=== PATIENT | female | born 1980 | race Caucasian/White ===

== ENCOUNTER 2019-09-16 12:41 | Emergency (ER) | payer MEDICAID, OTHER ==
[~2019-09-16] VITALS: Ht 157.5 cm; Wt 90.7 kg
--- NOTE | 2019-09-16 13:50 | ED Head Injury ---
General Chief Complaint: Head/Cervical Problems Stated Complaint: HEADACHE; CHEST PAIN Nursing Triage Note: Patient reports she has had a headache and sinus pressure for 3 weeks, states she has seen her PCP 3x and an urgent care provider once, has taken 2 different antiobiotics without relief. She states she took her antibiotic and ate enchiladas today for lunch, then began having what she describes as heartburn. Source: patient History of Present Illness Date Seen by Provider: Sep 16, 2019 Time Seen by Provider: 13:00 Initial Comments Patient is a 39-year-old female with history of headaches, depression and anxiety who presents with sinus pressure, headache and dizziness for the past 3 weeks. Patient states she was seen at urgent care twice for headache and completed course of Abx which did not help. Denies neck pain, stiffness, rash. Denies extremity weakness, loss of sensation, loss of taste or smell. Reports heartburn after eating enchilada for lunch. He also reports increased replace anxiety and stress. She states she has been off Zoloft for the past 2 months. Occurred: just prior to arrival Severity: moderate Location: frontal Method of Injury: other Loss of Consciousness: no loss of consciousness Associated Systoms: Chest Pain, Other Allergies and Home Medications Allergies Coded Allergies: butorphanol (Verified Allergy, Unknown, 09/16/19) Patient Home Medication List Home Medication List Reviewed: Yes Review of Systems Review of Systems Constitutional: see HPI Eyes: See HPI Ears, Nose, Mouth, Throat: see HPI Respiratory: see HPI Cardiovascular: see HPI Gastrointestinal: see HPI Genitourinary: see HPI Musculoskeletal: see HPI Skin: see HPI Psychiatric/Neurological: See HPI Endocrine: See HPI Hematologic/Lymphatic: See HPI All Other Systems Reviewed Negative Unless Noted: Yes Past Pzkgijn-Ysvrzo-Nspsql Hx Past Med/Social Hx: Reviewed Nursing Past Med/Soc Hx Patient Social History Alcohol Use: Denies Use Recreational Drug Use: No Smoking Status: Never a Smoker 2nd Hand Smoke Exposure: No Recent Foreign Travel: No Contact w/Someone Who Travel: No Recent Infectious Disease Expo: No Recent Hopitalizations: No Physical Abuse: No Sexual Abuse: No Mistreated: No Fear: No Seasonal Allergies Seasonal Allergies: No Past Medical History Surgeries: No Respiratory: No Cardiac: Yes Hypertension Neurological: No Genitourinary: No Gastrointestinal: Yes Gastroesophageal Reflux Musculoskeletal: No Endocrine: No HEENT: No Cancer: No Psychosocial: No Integumentary: No Physical Exam Vital Signs Vital Signs - First Documented 09/16/19 12:57 Temp 36.6 Pulse 81 Resp 18 B/P (MAP) 128/70 (89) Pulse Ox 100 O2 Delivery Room Air Capillary Refill : Less Than 3 Seconds Height, Weight, BMI Height: '" Weight: lbs. oz. kg; 36.00 BMI Method: General Appearance: WD/WN, no apparent distress HEENT: PERRL/EOMI, TMs normal, pharynx normal Neck: non-tender, full range of motion, supple Cardiovascular: regular rate, rhythm, no edema Respiratory: chest non-tender, lungs clear Back: normal inspection Psychiatric: alert, oriented x 3, other (anxious) Crainal Nerves: PERRL Coordination/Gait: normal gait Progress/Results/Core Measures Results/Orders My Orders Orders - EDGAR DAN DO Urine Bedside (09/16/19 13:06) Ct Head Wo (09/16/19 13:06) Antacid Suspension (Mylanta Suspension (09/16/19 14:00) Medications Given in ED Current Medications Medications Dose Ordered Sig/Chris Route Start Time Stop Time Status Last Admin Dose Admin Al Hydrox/Mg Hydrox/Simethicone 30 ml ONCE ONCE PO 09/16/19 14:00 09/16/19 14:01 DC 09/16/19 13:58 30 ML Vital Signs/I&O 09/16/19 12:57 Temp 36.6 Pulse 81 Resp 18 B/P (MAP) 128/70 (89) Pulse Ox 100 O2 Delivery Room Air Blood Pressure Mean: 89 Departure Communication (Admissions) CT head: No active sinus disease or other acute findings No focal neurologic deficits. CT negative. Patient resting comfortably after treatment. Recommend supportive care with PCP follow-up. She was reviewed. Patient verbalizes understanding and agreement discharge instructions prior to departure. Impression Primary Impression: Tension type headache Disposition: HOME, SELF-CARE Condition: Stable Departure-Patient Inst. Referrals: JUANIS ARNETT MD (PCP/Family) Primary Care Physician Patient Instructions: Tension Headache Add. Discharge Instructions: Go home and rest. Take Excedrin Migraine and Compazine as needed for headache. Follow-up with your PCP early next week if symptoms persist. Return to the ED if new or worsening symptoms. All discharge instructions reviewed with patient and/or family. Voiced understanding. EDGAR DAN DO Sep 16, 2019 13:50
[2019-09-16] MEDS ORDERED: ANTACID SUSP 30 ML UDC (MYLANTA) PO ONE (14:00)
--- OUTSIDE RECORDS SUMMARY | 2019-09-16 14:09 | XMS REPORT ---
Author Author Moises MOLINA Organization [facility] Address [address] [place] [address] Care Team Providers Care U.S. Commissioner Name Role Phone TRACY MIK Unavailable PROBLEMS Type Condition ICD9-CM Code [id number] Code Onset Dates Condition S tatus SNOMED Code Problem Hypertension I10 Active 2203729 3 ALLERGIES No Information ENCOUNTERS Encounter Location Date Diagnosis [facility] [address] Apr, [address] [address] Jan, [facility] [address] [place] [address] Dec, Encounter for immunization Z 23 [facility] [address] [place] [address] Oct, Acute cystitis with hematuri a N30.01 and UTI symptoms R39.[address] [place] [address] Sep, [address] [address] Jun, Anemia, unspecified type D64.9 and Dimin ished libido R68.82 [facility] IN [facility] [address] [place] [address] Jun, [address] [place] [address] Jun, Low hemoglobin D64.[address] [place] [address] Jun, [address] [address] May, [facility] [address] [id number] [place] [address] May, Hypertension I10 and Fatigue R53.83 [facility] [address] [place] [address] May, Acute bilateral low back garland n without sciatica M54.5 [facility] [address] [id number] [place] [address] Mar, IMMUNIZATIONS No Known Immunizations SOCIAL HISTORY Never Assessed REASON FOR VISIT Lab Results PLAN OF CARE VITAL SIGNS MEDICATIONS Unknown Medications RESULTS No Results PROCEDURES No Known procedures INSTRUCTIONS MEDICATIONS ADMINISTERED No Known Medications MEDICAL (GENERAL) HISTORY Type Description Date Medical History hypertension Medical History GERD Medical History Family HX Hypothyrodism Surgical History No know Surgical history Hospitalization History No know Hospitalization history
--- OUTSIDE RECORDS SUMMARY | 2019-09-16 14:09 | XMS REPORT ---
Author Author Moises DELGADILLO Organization [facility] Address [address] [place] [address] Care Team Providers Care Table Setter Name Role Phone HARINICHADRAFYJUAN PABLOYAS Unavailable PROBLEMS Type Condition ICD9-CM Code OQF05-EN Code Onset Dates Condition S tatus SNOMED Code Problem Sciatica of left side M54.32 Active 38188024 Problem Seasonal allergic rhinitis, unspecified trigger J3 0.2 Active 491096336 Problem Hypertension I10 Active 4869851 3 Problem Moderate episode of recurrent major depressive disorder F33.1 Active 392231539 Problem History of gestational diabetes Z86.32 Active 386582743 ALLERGIES No Information ENCOUNTERS Encounter Location Date Diagnosis [facility] IN [facility] [address] [id number] [address] 11 Aug, 2019 Viral upper respiratory trac t infection J06.9 [place] [address] [id number] [address] Aug, [place] [address] [id number] [address] Aug, [facility] IN [facility] [address] [id number] [place] [address] July, Sciatica of left side M54.32 [facility] [address] [id number], [place] [address] Jun, [facility] [address] [id number], [place] [address] Jun, Anemia, unspecified type D64.9 [facility] [address] [id number], [place] [address] 15 Jun, 2019 [facility] [address] [id number], [place] [address] Jun, Hypertension I10 ; Anemia, unspecified t ype D64.9 ; History of gestational diabetes Z86.32 ; Moderate episode of recurrent major depressive disorder F33.1 and Right foot pain M79.671 [facility] [address] [place] [address] [id number] [place] [address] Apr, [facility] [address] [place] [address] [id number] [place] [address] Jan, [facility] [address] [id number] [address] Dec, Encounter for immunization Z 23 [facility] [address] [id number] [place] [address] Oct, Acute cystitis with hematuri a N30.01 and UTI symptoms R39.9 [facility] [place] [id number] [place] [address] Sep, [facility] [address] [place] [address] [id number] [place] [address] Jun, Anemia, unspecified type D64.9 and Dimin ished libido R68.82 [facility] [address] [id number] [place] [address] Jun, [facility] [address] [place] [address] [id number] [place] [address] Jun, Low hemoglobin D64.9 [facility] [place] [id number] [place] [address] Jun, [facility] [address] [place] [address] [id number] [place] [address] May, [facility] [address] [place] [address] [id number] [place] [address] May, Hypertension I10 and Fatigue R53.83 [facility] [address] [id number] [address] May, Acute bilateral low back garland n without sciatica M54.5 [facility] [place] [address] [id number] [place] [address] Mar, IMMUNIZATIONS No Known Immunizations SOCIAL HISTORY Never Assessed REASON FOR VISIT Lab (walk-in), Pt here for hemoccult testing. Judith Wagner, RN PLAN OF CARE VITAL SIGNS MEDICATIONS No Known Medications RESULTS Name Result Date Reference Range HEMOCCULT/FOBT (IN HOUSE) 2018-06-04 RESULTS negative Control pass Lot # [id number] Exp date HEMOCCULT/FOBT (IN HOUSE) - Additional 1 RESULTS negative Control pass Lot # [id number] Exp Date PROCEDURES Procedure Date Ordered Result Body Site TEST FOR BLOOD, FECES June 04, 2018 INSTRUCTIONS MEDICATIONS ADMINISTERED No Known Medications MEDICAL (GENERAL) HISTORY Type Description Date Medical History hypertension Medical History GERD Medical History Family HX Hypothyrodism Surgical History No Surgical history information Hospitalization History No Hospitalization history informati on
--- OUTSIDE RECORDS SUMMARY | 2019-09-16 14:09 | XMS REPORT ---
Author Author Moises MOLINA Organization [facility] Address [address] [place] [address] Care Team Providers Care Production Honing Machine Operator Name Role Phone TRACYGARYMIK Unavailable PROBLEMS Type Condition ICD9-CM Code LZK93-VF Code Onset Dates Condition S tatus SNOMED Code Problem Sciatica of left side M54.32 Active 82071812 Problem Seasonal allergic rhinitis, unspecified trigger J3 0.2 Active 121820992 Problem Hypertension I10 Active 5556140 3 Problem Moderate episode of recurrent major depressive disorder F33.1 Active 544506541 Problem History of gestational diabetes Z86.32 Active 459042256 ALLERGIES No Information ENCOUNTERS Encounter Location Date Diagnosis [facility] IN [facility] [address] [id number], [place] [address] 11 Aug, 2019 Viral upper respiratory trac t infection J06.9 [facility] [address] [id number] [address] 11 Aug, 2019 [facility] [address] [id number] [address] Aug, [facility] IN [facility] [address] [id number], [place] [address] July, Sciatica of left side M54.32 [facility] [address] [id number] [place] [address] Jun, [facility] [address] [id number] [place] [address] 17 Jun, 2019 Anemia, unspecified type D64.9 [facility] [address] [id number] [place] [address] 15 Jun, 2019 [facility] [address] [id number] [place] [address] Jun, Hypertension I10 ; Anemia, unspecified t ype D64.9 ; History of gestational diabetes Z86.32 ; Moderate episode of recurrent major depressive disorder F33.1 and Right foot pain M79.671 [facility] [place] [address] [place], [place] [address] [id number] [place] [address] Apr, [facility] [place] [address] [place] [address] [id number] [place] [address] Jan, [facility] [address] [id number] [place] [address] Dec, Encounter for immunization Z 23 [facility] IN [place] [address] [id number] [place] [address] Oct, Acute cystitis with hematuri a N30.01 and UTI symptoms R39.9 [facility] [place] [address] [place] [address] [id number] [place] [address] Sep, [facility] [place] [address] [place] [address] [id number] [place] [address] Jun, Anemia, unspecified type D64.9 and Dimin ished libido R68.82 [facility] [address] [id number] [place] [address] Jun, [facility] [place] [address] [place] [address] [address] [id number] [place] [address] Jun, Low hemoglobin D64.9 [facility] [place] [address] [place], [place] [address] [place] [id number] [place] [address] Jun, [facility] [place] [address] [place], [place] [address] [id number] [place] [address] May, [facility] [address] [place] [address] RD [id number] [place] [address] May, Hypertension I10 and Fatigue R53.83 [facility] [address] [id number] [place] [address] May, Acute bilateral low back garland n without sciatica M54.5 [facility] [address] [id number] [facility] [place] [address] Mar, IMMUNIZATIONS No Known Immunizations SOCIAL HISTORY Never Assessed REASON FOR VISIT Test Results PLAN OF CARE VITAL SIGNS MEDICATIONS No Known Medications RESULTS No Results PROCEDURES No Known procedures INSTRUCTIONS MEDICATIONS ADMINISTERED No Known Medications MEDICAL (GENERAL) HISTORY Type Description Date Medical History hypertension Medical History GERD Medical History Family HX Hypothyrodism Surgical History No Surgical history information Hospitalization History No Hospitalization history informati on
--- OUTSIDE RECORDS SUMMARY | 2019-09-16 14:09 | XMS REPORT ---
Author Author Moises CONTRERAS Organization [facility] Address [address] [place] [address] Care Team Providers Care Aircraft Power Plant Assembler Name Role Phone MORALES CONTRERASISTYN Unavailable PROBLEMS Type Condition ICD9-CM Code VZJ74-SE Code Onset Dates Condition S tatus SNOMED Code Problem Hypertension I10 Active 2266419 3 ALLERGIES No Information ENCOUNTERS Encounter Location Date Diagnosis [address] [id number] [place] [address] Jun, [address] [id number], [place] [address] Apr, [address] [id number], [place] [address] Jan, [facility] IN [facility] [id number] [place] [address] Dec, Encounter for immunization Z 23 [facility] IN [facility] [id number] [address] Oct, Acute cystitis with hematuri a N30.01 and UTI symptoms R39.[address] [id number] [place] [address] Sep, [address] [id number], [place] [address] Jun, Anemia, unspecified type D64.9 and Dimin ished libido R68.82 [facility]DA [facility] IN [facility] [id number] [address] Jun, [address] [id number] [place] [address] Jun, Low hemoglobin D64.9 [facility] [address] [id number] [place] [address] Jun, [facility] [address] [id number] [place] [address] May, [facility] [address] [id number] [place] [address] May, Hypertension I10 and Fatigue R53.83 [facility] [address] [id number] [place] [address] May, Acute bilateral low back garland n without sciatica M54.5 [facility] [address] [facility] [id number] [place] [address] Mar, IMMUNIZATIONS No Known Immunizations SOCIAL HISTORY Never Assessed REASON FOR VISIT results PLAN OF CARE VITAL SIGNS MEDICATIONS Unknown Medications RESULTS No Results PROCEDURES No Known procedures INSTRUCTIONS MEDICATIONS ADMINISTERED No Known Medications MEDICAL (GENERAL) HISTORY Type Description Date Medical History hypertension Medical History GERD Medical History Family HX Hypothyrodism Surgical History No know Surgical history Hospitalization History No know Hospitalization history
--- OUTSIDE RECORDS SUMMARY | 2019-09-16 14:09 | XMS REPORT ---
Author Author Moises MOLINA Organization [facility] Address [address] [place] [address] Care Team Providers Care Hydrometer Calibrator Name Role Phone TRACY MIK Unavailable PROBLEMS Type Condition ICD9-CM Code IKH46-VJ Code Onset Dates Condition S tatus SNOMED Code Problem Hypertension I10 Active 7669307 3 ALLERGIES No Information ENCOUNTERS Encounter Location Date Diagnosis [address] [address] Jan, [facility] [address] [place] [address] Dec, Encounter for immunization Z 23 [facility] IN [facility] [address] [place] [address] Oct, Acute cystitis with hematuri a N30.01 and UTI symptoms R39.[address] [place] [address] Sep, [address] [place] [address] Jun, Anemia, unspecified type D64.9 and Dimin ished libido R68.82 [facility] [address] [place] [address] Jun, [address] [place] [address] Jun, Low hemoglobin D64.9 [address] [place] [address] Jun, [address] [place] [address] May, [address] [address] May, Hypertension I10 and Fatigue R53.83 [facility] [address] [place] [address] May, Acute bilateral low back galrand n without sciatica M54.5 [facility] [address] [id number] [place] [address] Mar, IMMUNIZATIONS No Known Immunizations SOCIAL HISTORY Never Assessed REASON FOR VISIT Lab (walk-in) PLAN OF CARE VITAL SIGNS MEDICATIONS Unknown Medications RESULTS No Results PROCEDURES Procedure Date Ordered Result Body Site LAB NOT BILLED BY [facility] May 30, 2018 INSTRUCTIONS MEDICATIONS ADMINISTERED No Known Medications MEDICAL (GENERAL) HISTORY Type Description Date Medical History hypertension Medical History GERD Medical History Family HX Hypothyrodism Surgical History No know Surgical history Hospitalization History No know Hospitalization history
--- OUTSIDE RECORDS SUMMARY | 2019-09-16 14:10 | XMS REPORT | Continuity of Care Document ---
Author Organization Unknown Address Unknown Phone Unavailable Allergies There is no data. Medications There is no data. Problems There is no data. Procedures There is no data. Results Test Result Range LIPID PANEL - 05/30/18 11:08 CHOLESTEROL, TOTAL 173 mg/dL <200 HDL CHOLESTEROL 34 mg/dL >50 TRIGLYCERIDES 96 mg/dL <150 LDL-CHOLESTEROL 119 mg/dL (calc) NRG CHOL/HDLC RATIO 5.1 (calc) <5.0 NON HDL CHOLESTEROL 139 mg/dL (calc) <13 0 CMP - 05/30/18 11:08 GLUCOSE 121 mg/dL 65-99 UREA NITROGEN (BUN) 15 mg/dL 7-25 CREATININE 1.00 mg/dL 0.50-1.10 eGFR NON-AFR. [place] 72 mL/min/1.73m2 > OR = 60 eGFR 83 mL/min/1.73m2 > OR = 60 BUN/CREATININE RATIO NOT APPLICABLE (calc) 6-22 SODIUM 138 mmol/L 135-146 POTASSIUM 4.0 mmol/L 3.5-5.3 CHLORIDE 105 mmol/L 98-110 CARBON DIOXIDE 27 mmol/L 20-32 CALCIUM 9.2 mg/dL 8.6-10.2 PROTEIN, TOTAL 7.0 g/dL 6.1-8.1 ALBUMIN 4.2 g/dL 3.6-5.1 GLOBULIN 2.8 g/dL (calc) 1.9-3.7 ALBUMIN/GLOBULIN RATIO 1.5 (calc) 1.0-2. 5 BILIRUBIN, TOTAL 0.6 mg/dL 0.2-1.2 ALKALINE PHOSPHATASE 57 U/L 33-115 AST 15 U/L 10-30 ALT 13 U/L 6-29 CBC - 05/30/18 11:08 WHITE BLOOD CELL COUNT 7.4 Thousand/uL 3 .8-10.8 RED BLOOD CELL COUNT 4.52 Million/uL 3.8 0-5.10 HEMOGLOBIN 10.3 g/dL 11.7-15.5 HEMATOCRIT 32.4 % 35.0-45.0 MCV 71.7 fL 80.0-100.0 MCH 22.8 pg 27.0-33.0 MCHC 31.8 g/dL 32.0-36.0 RDW 15.3 % 11.0-15.0 PLATELET COUNT 344 Thousand/uL 140-400 MPV 9.9 fL 7.5-12.5 ABSOLUTE NEUTROPHILS 4403 cells/uL 1500- 7800 ABSOLUTE LYMPHOCYTES 2523 cells/uL 850-3 900 ABSOLUTE MONOCYTES 303 cells/uL 200-950 ABSOLUTE EOSINOPHILS 133 cells/uL 15-500 ABSOLUTE BASOPHILS 37 cells/uL 0-200 NEUTROPHILS 59.5 % NRG LYMPHOCYTES 34.1 % NRG MONOCYTES 4.1 % NRG EOSINOPHILS 1.8 % NRG BASOPHILS 0.5 % NRG TSH - 05/30/18 11:08 TSH 1.43 mIU/L NRG CULTURE, URINE - 10/22/18 15:30 CULTURE, URINE, ROUTINE SEE NOTE NRG CBC w/MANUAL DIFF - 06/18/19 11:36 WHITE BLOOD CELL COUNT 7.7 Thousand/uL 3 .8-10.8 RED BLOOD CELL COUNT 4.68 Million/uL 3.8 0-5.10 HEMOGLOBIN 11.1 g/dL 11.7-15.5 HEMATOCRIT 35.1 % 35.0-45.0 MCV 75.0 fL 80.0-100.0 MCH 23.7 pg 27.0-33.0 MCHC 31.6 g/dL 32.0-36.0 RDW 14.8 % 11.0-15.0 PLATELET COUNT 314 Thousand/uL 140-400 MPV 10.0 fL 7.5-12.5 ABSOLUTE NEUTROPHILS 4874 cells/uL 1500- 7800 ABSOLUTE MONOCYTES 154 cells/uL 200-950 ABSOLUTE EOSINOPHILS 231 cells/uL 15-500 ABSOLUTE BASOPHILS 77 cells/uL 0-200 NEUTROPHILS 63.3 % NRG LYMPHOCYTES 29.7 % NRG MONOCYTES 2.0 % NRG EOSINOPHILS 3.0 % NRG BASOPHILS 1.0 % NRG ABSOLUTE BAND NEUTROPHILS 77 cells/uL 0- 750 ABSOLUTE LYMPHOCYTES 2287 cells/uL 850-3 900 BAND NEUTROPHILS 1.0 % NRG PLATELET ESTIMATION ADEQUATE ADEQUATE CBC MORPHOLOGY NORMAL ANEMIA PANEL - 06/21/19 11:40 IRON, TOTAL 34 mcg/dL 40-190 FERRITIN 22 ng/mL 16-154 IRON BINDING CAPACITY 303 mcg/dL (calc) 250-450 % SATURATION 11 % (calc) 16-45 Encounters ACCT No. Visit Date/Time Discharge Status Pt. Type Provider Facility Loc./Unit Complaint [id number] 08/15/2019 18:00:00 08/15/2019 23:59: 59 CLS Outpatient MIK MOLINA [facility] [id number] 06/21/2019 11:40:00 Document Registration [id number] 06/18/2019 13:00:00 Document Registration [id number] 10/22/2018 15:20:00 Document Registration [id number] 05/30/2018 11:00:00 Document Registration
--- OUTSIDE RECORDS SUMMARY | 2019-09-16 14:10 | XMS REPORT ---
Author Author Moises GONZALEZ Organization [facility] Address [address] [place] [address] Care Team Providers Care Reservations Sales Supervisor Name Role Phone CARLOS FRAN Unavailable PROBLEMS Type Condition ICD9-CM Code [id number] Code Onset Dates Condition S tatus SNOMED Code Problem Hypertension I10 Active [id number] ALLERGIES Substance Reaction Event Type Date Status Stadol nausea and vomiting Drug Allergy May, Active Hydrocodone-Acetaminophen nausea and vomiting Drug Allergy May, Active ENCOUNTERS Encounter Location Date Diagnosis [facility] [address] [place] [id number] Dec, [facility] [address] [place] [facility] [place] [address] Oct, Acute cystitis with hematuria N30.01 and UTI symptoms R39.[address] [address] Sep, [address] [address] Jun, Anemia, unspecified type D64.9 and Diminished libido R68.82 [facility] [address] [place] [address] Jun, [address] [address] Jun, Low hemoglobin D64.[address] [address] Jun, [address] [address] May, [address] [address] May, Hypertension I10 and Fatigue R53.83 [facility] [address] [place] [facility] [place] [address] May, Acute bilateral low back pain without sc iatica M54.5 [facility] [address] [facility] [place] [address] Mar, IMMUNIZATIONS Vaccine Route Administration Date Status TORADOL (IM) 60 MG/2ML (UP TO 15 MG) IM Intramuscular May 25, 2018 Administered SOCIAL HISTORY Never Assessed REASON FOR VISIT lower back hurting may san PLAN OF CARE Activity Details Follow Up f/u with PCP if not improvin g Reason: VITAL SIGNS Weight 208 lbs 2018-05-25 Temperature 98.5 degrees Fahrenheit 2018-05-25 Heart Rate 83 bpm 2018-05-25 Respiratory Rate 18 2018-05-25 Oximetry 98 % 2018-05-25 Blood pressure systolic 128 mmHg 2018-05-25 Blood pressure diastolic 80 mmHg 2018-05-25 MEDICATIONS Medication Instructions Dosage Frequency Start Date End Date Duration S tatus Medrol 4 MG Orally as directed as directed May, 6 days Active Sertraline HCl 100 MG Orally Once a day with 25 mg tablet (t otal 125 mg) 1 tablet 30 days Active Lisinopril 40 MG Orally Once a day 1 tablet 24h 30 Active Sertraline HCl 25 MG Orally Once a day 1 tablet 24h 30 day(s) Active Cyclobenzaprine HCl 10 MG Orally at bedtime as needed 1/2-1 tablet as needed May, 14 days Active Zoloft 100 MG Orally Once a day 1 tablet 24h 30 day( s) Active Protonix 40 MG Orally Once a day 1 tablet 24h 30 day (s) Active Cyclobenzaprine HCl 10 MG Orally Three times a day 1 tablet as needed 8h 30 days Active RESULTS No Results PROCEDURES Procedure Date Ordered Result Body Site THER/PROPH/DIAG INJ, SC/IM May 25, 2018 TORADOL (IM) 60 MG/2ML (UP TO 15 MG) May 25, 2018 INSTRUCTIONS MEDICATIONS ADMINISTERED No Known Medications MEDICAL (GENERAL) HISTORY Type Description Date Medical History hypertension Medical History GERD Medical History Family HX Hypothyrodism Surgical History No know Surgical history Hospitalization History No know Hospitalization history
--- NOTE | 2019-09-16 14:13 | Diagnostic Imaging Report ---
PROCEDURE: CT head without contrast. TECHNIQUE: Multiple contiguous axial images were obtained through the brain without the use of intravenous contrast. Auto Exposure Controls were utilized during the CT exam to meet ALARA standards for radiation dose reduction. INDICATION: Headache and sinus pressure for 3 weeks. No prior studies are available for comparison. Ventricles and sulci are within normal limits. No sulcal effacement or midline shift is identified. No acute intra-axial or extra-axial hemorrhage is detected. Cisterns are patent. Visualized paranasal sinuses are clear. IMPRESSION: No acute intracranial process is detected. Dictated by: Dictated on workstation # [id number]
[2019-09-16] MEDS ORDERED: PROC-1 PO (14:43)
[2019-09-16 14:44] VITALS: BP 116/90
== END 2019-09-16 14:45 | disposition home or self-care (01) ==
LOC: ER FS 12:44
DX: G44.209 Tension-type headache, unspecified, not intractable (principal); Z88.8 Allergy status to other drugs, medicaments and biological substances
CPT/HCPCS: 70450; 84703

== ENCOUNTER 2021-06-14 02:16 | Emergency (ER) | payer MEDICAID ==
[~2021-06-14 02:16] MED LIST: PROC-1 PO
[2021-06-14] MEDS ORDERED: FAMOTIDINE 20 MG (PEPCID) TABLET PO STA (02:23)
--- NOTE | 2021-06-14 02:23 | ED Abdominal Pain ---
General Stated Complaint: UPPER RESPIRATORY BURNING Source of Information: Patient Exam Limitations: No Limitations History of Present Illness Date Seen by Provider: Jun 14, 2021 Time Seen by Provider: 02:21 Initial Comments 41yoF with past medical history of GERD, HTN, HLD, DM coming in due to epigastric burning. Started around 10pm just after she ate a cheeseburger. It has been constant burning since then. Worse when laying down flat. Slightly better after belching. It is mild to moderate. She took tums which helped some. The last time this happened a "GI cocktail" took all the pain away. Denies any cardiac history, prior DVT or PE, hemoptysis, cough, shortness of breath, fever, nausea, vomiting, diarrhea, dysuria, chest pain, or any other concerns. Allergies and Home Medications Allergies Coded Allergies: butorphanol (Verified Allergy, Unknown, 09/16/19) Patient Home Medication List Home Medication List Reviewed: Yes Prochlorperazine Maleate (Compazine) 10 Mg Tablet, 10 MG PO Q8H Prescribed by: EDGAR DAN on 09/16/19 1443 Review of Systems Review of Systems Constitutional: No chills, No fever EENTM: No Blurred Vision Respiratory: Denies Cough, Denies Shortness of Air Cardiovascular: Denies Chest Pain Gastrointestinal: Abdominal Pain Genitourinary: No Symptoms Reported Musculoskeletal: no symptoms reported Skin: no symptoms reported Psychiatric/Neurological: No Symptoms Reported Endocrine: No Symptoms Reported Hematologic/Lymphatic: No Symptoms Reported All Other Systems Reviewed Negative Unless Noted: Yes Past [id number]-[id number] Hx Patient Social History Tobacco Use?: No Substance use?: No Alcohol Use?: No Seasonal Allergies Seasonal Allergies: No Past Medical History Surgeries: No Respiratory: No Cardiac: Yes Hypertension Neurological: No Genitourinary: No Gastrointestinal: Yes Gastroesophageal Reflux Musculoskeletal: No Endocrine: No HEENT: No Cancer: No Psychosocial: No Integumentary: No Physical Exam Vital Signs Vital Signs - First Documented 06/14/21 02:20 Pulse 92 Resp 18 B/P (MAP) 135/82 (99) Pulse Ox 99 O2 Delivery Room Air Capillary Refill : Height/Weight/BMI Height: '" Weight: lbs. oz. kg; 36.00 BMI Method: General Appearance: WD/WN, no apparent distress HEENT: PERRL/EOMI, normal ENT inspection, pharynx normal Neck: non-tender, full range of motion, supple, normal inspection Respiratory: chest non-tender, lungs clear, normal breath sounds, no respiratory distress, no accessory muscle use Cardiovascular: regular rate, rhythm, no edema, no murmur Gastrointestinal: normal bowel sounds, non tender, soft; No distended, No guarding, No rebound Extremities: normal range of motion, non-tender, normal inspection, no pedal edema, no calf tenderness, normal capillary refill Back: normal inspection, no CVA tenderness Neurologic/Psychiatric: no motor/sensory deficits, alert, normal mood/affect Skin: normal color, warm/dry Lymphatic: no adenopathy Progress/Results/Core Measures Results/Orders My Orders Orders - RYAN DUKE MD Lidocaine 2% Viscous 15 Ml (Xylocaine Vi (06/14/21 02:30) Famotidine Tablet (Pepcid Tablet) (06/14/21 02:23) Antacid Suspension (Mylanta Suspension (06/14/21 02:30) Acetaminophen Tablet (Tylenol Tablet) (06/14/21 02:30) Vital Signs/I&O 06/14/21 02:20 Pulse 92 Resp 18 B/P (MAP) 135/82 (99) Pulse Ox 99 O2 Delivery Room Air Progress Progress Note : Progress Note 41yoF with above history coming in due to epigastric burning. ABCs were intact and vitals were stable on presentation. Physical exam reassuring with no significant abdominal tenderness. Clinically this sounds related to GERD. Given that the pain has been constant for about 5 hours and unrelenting this would make it very unlikely to be ACS. She is also low risk for PE and is PERC negative. EKG ordered out of abundance of caution and is normal sinus rhythm with no acute ischemic changes. She was given a GI cocktail with complete resolution of her symptoms. I will have her follow-up with her PCP for potential GI referral. She was then discharged home in stable condition with s trict return precautions. Initial ECG Impression Date: Jun 14, 2021 Initial ECG Impression Time: 02:32 Initial ECG Rate: 88 Initial ECG Rhythm: Normal Sinus Comment Narrow QRS, normal axis, no significant ST changes or T wave abnormalities Departure Impression Primary Impression: Epigastric burning sensation Disposition: 01 HOME, SELF-CARE Condition: Stable Departure-Patient Inst. Decision time for Depature: 02:45 Referrals: JUANIS ARNETT MD (PCP/Family) Primary Care Physician Patient Instructions: Dyspepsia (DC) Add. Discharge Instructions: This is likely related to acid reflux that you are feeling. Sometimes they can harm the lining of the stomach and esophagus making the pain worse. I recommend continuing your Nexium, and you can buy [id number] Maalox Max to take when you are actively having pain. I will follow up with your regular doctor to see if they would like to do an upper GI scope referral to see if you have any ulcers if this continues. If the pain goes away, then you do not need to follow-up. If you develop any severe chest pain I would want you to follow-up with a crozer operator. Avoid things such as ibuprofen and naproxen which can worsen these symptoms. Tylenol is a safe medicine. Work/School Note: Work Release Form Date Seen in the Emergency Department: Jun 14, 2021 Return to Work: Jun 15, 2021 Restrictions: No Restrictions RYAN DUKE MD Jun 14, 2021 02:23
[2021-06-14] MEDS ORDERED: LIDOCAINE 2% VISCOUS 15 ML UDC PO ONE (02:30)
[2021-06-14] MEDS ORDERED: ACETAMINOPHEN 500 MG TAB (TYLENOL) PO ONE (02:30)
[2021-06-14] MEDS ORDERED: ANTACID SUSP 30 ML UDC (MYLANTA) PO ONE (02:30)
[2021-06-14 02:46] VITALS: BP 135/82
== END 2021-06-14 02:46 | disposition home or self-care (01) ==
LOC: EDUNIT# 02:16 → ER FS 02:19
DX: R10.816 Epigastric abdominal tenderness (principal)
CPT/HCPCS: 93005

== ENCOUNTER 2022-03-10 11:30 | Emergency (ER) | payer MEDICAID ==
[~2022-03-10] VITALS: Ht 157 cm; Wt 86.0 kg
[2022-03-10] MEDS ORDERED: KETOROLAC 15 MG/ML VIAL IVP STA (11:42)
[2022-03-10] MEDS ORDERED: NS IV 1000 ML 1,000 ML IV STA (11:42)
[2022-03-10] MEDS ORDERED: PANTOPRAZOLE 40 MG (PROTONIX) VIAL IV STA (11:42)
[2022-03-10] MEDS ORDERED: ORPHENADRINE 60 MG/2 ML (NORFLEX) AMP (ED ONLY) IVP STA (11:42)
[2022-03-10] MEDS ORDERED: LIDOCAINE 2% VISCOUS 15 ML UDC PO ONE (11:45)
[2022-03-10] MEDS ORDERED: ANTACID SUSP 30 ML UDC (MYLANTA) PO ONE (11:45)
--- NOTE | 2022-03-10 11:55 | ED Chest Pain ---
General Stated Complaint: CHEST PAIN Source: patient History of Present Illness Date Seen by Provider: Mar 10, 2022 Time Seen by Provider: 11:36 Initial Comments 42-year-old female presenting with complaints of burning chest pain for the last 4 days. She states that its been worse since yesterday. 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 When she did that it caused a pop in her chest wall. She has had increased pain since then. She has had burning pain like this in the past that was related to reflux and GERD. She has previously received a GI cocktail and had resolution of her symptoms. She had gone to the clinic today and they had done an electrocardiogram that showed no acute findings and sent her to the emergency department because of her complaint of chest pain for 4 days. She has some reproducible chest pain with palpation over the sternum. She states that the pain is worse if she tries to eat or drink anything and if she is laying down. She has tried multiple mepd-yex-eubqulf medicines but not had any significant improvement. She denies any personal history of cardiac disease, high blood pressure, nausea, vomiting, shortness of breath, direct trauma to the chest, headache, dizziness, blurred vision, abdominal pain, diarrhea, constipation, blood in her stool, black tarry stool, pain with urination. She has a family history of cardiac disease in her father. 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) NTG SL BILINGUAL MEDICAL RECEPTIONIST: No Associated Symptoms: No abdominal pain, No diaphoresis, No dizziness, No edema, No fatigue, No fever/chills, No headache; heartburn; No nausea/vomiting, No rash, No shortness of breath, No swelling/lump in chest, No syncope, No weakness Allergies and Home Medications Allergies Coded Allergies: butorphanol (Verified Allergy, Unknown, 09/16/19) Patient Home Medication List Home Medication List Reviewed: Yes Pantoprazole Sodium (Pantoprazole Sodium) 40 Mg Tablet., 40 MG PO DAILY Prescribed by: ARMIDA EDWARD on 03/10/22 1246 Prochlorperazine Maleate (Compazine) 10 Mg Tablet, 10 MG PO Q8H Prescribed by: EDGAR DAN on 09/16/19 1443 Review of Systems Review of Systems Constitutional: No chills, No diaphoresis, No dizziness, No fever EENTM: No Symptoms Reported Respiratory: No Symptoms Reported Cardiovascular: See HPI Gastrointestinal: See HPI Genitourinary: No Symptoms Reported Musculoskeletal: no symptoms reported Skin: No change in color, No rash Psychiatric/Neurological: Anxiety Endocrine: No Symptoms Reported Hematologic/Lymphatic: Denies Blood Clots Past Umsrhpy-Kzhvix-Yrywra Hx Patient Social History Tobacco Use?: No Use of E-Cig and/or Vaping dev: No Substance use?: No Alcohol Use?: No Seasonal Allergies Seasonal Allergies: No Past Medical History Surgery/Hospitalization HX: GERD Surgeries: No Respiratory: No Cardiac: Yes Hypertension Neurological: No Genitourinary: No Gastrointestinal: Yes Gastroesophageal Reflux Musculoskeletal: No Endocrine: No HEENT: No Cancer: No Psychosocial: No Integumentary: No Physical Exam Vital Signs Vital Signs - First Documented 03/10/22 12:05 Pulse 91 Resp 16 B/P (MAP) 153/81 (105) Pulse Ox 99 O2 Delivery Room Air Capillary Refill : Height, Weight, BMI Height: '" Weight: lbs. oz. kg; 36.00 BMI Method: General Appearance: Anxious, Obese HEENT: PERRL/EOMI, Pharynx Normal, Moist Mucous Membranes Neck: Full Range of Motion, Normal Inspection, Non Tender, Supple Respiratory: No Chest Non Tender (tender to palpation over sternum and reproduces burning pain with palpation); Lungs Clear, Normal Breath Sounds, No Accessory Muscle Use, No Respiratory Distress Cardiovascular: Regular Rate, Rhythm, No Edema, No Murmur, Normal Peripheral Pulses Gastrointestinal: Normal Bowel Sounds, No Pulsatile Mass, Non Tender, Soft Rectal: Deferred Extremity: Normal Capillary Refill, Normal Inspection, Normal Range of Motion, Non Tender, No Calf Tenderness, No Pedal Edema Neurologic/Psychiatric: Alert, Oriented x3, No Motor/Sensory Deficits, associate java developer II- XII Norm as Tested Skin: Normal Color, Warm/Dry Progress/Results/Core Measures Results/Orders Lab Results Laboratory Tests Test 03/10/22 11:40 Range/Units White Blood Count 6.5 4.3-11.0 10^3/uL Red Blood Count 4.72 3.80-5.11 10^6/uL Hemoglobin 12.1 11.5-16.0 g/dL Hematocrit 37 35-52 % Mean Corpuscular Volume 78 L 80-99 fL Mean Corpuscular Hemoglobin 26 25-34 pg Mean Corpuscular Hemoglobin Concent 33 32-36 g/dL Red Cell Distribution Width 14.8 H 10.0-14.5 % Platelet Count 353 130-400 10^3/uL Mean Platelet Volume 9.8 9.0-12.2 fL Immature Granulocyte % (Auto) 0 % Neutrophils (%) (Auto) 50 42-75 % Lymphocytes (%) (Auto) 41 12-44 % Monocytes (%) (Auto) 5 0-12 % Eosinophils (%) (Auto) 4 0-10 % Basophils (%) (Auto) 1 0-10 % Neutrophils # (Auto) 3.2 1.8-7.8 10^3/uL Lymphocytes # (Auto) 2.6 1.0-4.0 10^3/uL Monocytes # (Auto) 0.3 0.0-1.0 10^3/uL Eosinophils # (Auto) 0.3 0.0-0.3 10^3/uL Basophils # (Auto) 0.1 0.0-0.1 10^3/uL Immature Granulocyte # (Auto) 0.0 0.0-0.1 10^3/uL Prothrombin Time 12.1 L 12.2-14.7 SEC INR Comment 0.9 0.8-1.4 Activated Partial Thromboplast Time 27 24-35 SEC D-Dimer 0.45 0.00-0.49 UG/ML Sodium Level 139 135-145 MMOL/L Potassium Level 4.3 3.6-5.0 MMOL/L Chloride Level 103 98-107 MMOL/L Carbon Dioxide Level 24 21-32 MMOL/L Anion Gap 12 5-14 MMOL/L Blood Urea Nitrogen 22 H 7-18 MG/DL Creatinine 1.06 0.60-1.30 MG/DL Estimat Glomerular Filtration Rate 68 BUN/Creatinine Ratio 21 Glucose Level 116 H 70-105 MG/DL Calcium Level 9.3 8.5-10.1 MG/DL Corrected Calcium 9.0 8.5-10.1 MG/DL Magnesium Level 2.0 1.6-2.4 MG/DL Total Bilirubin 0.3 0.1-1.0 MG/DL Aspartate Amino Transf (AST/SGOT) 12 5-34 U/L Alanine Aminotransferase (ALT/SGPT) 16 0-55 U/L Alkaline Phosphatase 72 40-136 U/L Troponin I < 0.30 <0.30 NG/ML Pro-B-Type Natriuretic Peptide 63.9 <125.0 PG/ML Total Protein 7.2 6.4-8.2 GM/DL Albumin 4.4 3.2-4.5 GM/DL Lipase 34 8-78 U/L My Orders Orders - ARMIDA EDWARD MD Cbc With Automated Diff (03/10/22 11:40) Magnesium (03/10/22 11:40) Chest 1 View Ap/Pa Only (03/10/22 11:40) Ekg Tracing (03/10/22 11:40) Comprehensive Metabolic Panel (03/10/22 11:40) Protime With Inr (03/10/22 11:40) Partial Thromboplastin Time (03/10/22 11:40) O2 (03/10/22 11:40) Monitor-Rhythm Ecg Trace Only (03/10/22 11:40) Ed Iv/Invasive Line Start (03/10/22 11:40) Lipase (03/10/22 11:40) Troponin I Fs (03/10/22 11:40) Probnp Fs (03/10/22 11:40) Fibrin Degradation Products (03/10/22 11:40) Ns Iv 1000 Ml (Sodium Chloride 0.9%) (03/10/22 11:42) Ketorolac Injection (Toradol Injection) (03/10/22 11:42) Orphenadrine Inj (Ed Only) (Norflex Inje (03/10/22 11:42) Lidocaine 2% Viscous 15 Ml (Xylocaine Vi (03/10/22 11:45) Antacid Suspension (Mylanta Suspension (03/10/22 11:45) Pantoprazole Injection (Protonix Injecti (03/10/22 11:42) Medications Given in ED Current Medications Medications Dose Ordered Sig/Chris Route Start Time Stop Time Status Last Admin Dose Admin Al Hydrox/Mg Hydrox/Simethicone 30 ml ONCE ONCE PO 03/10/22 11:45 1/5/23 11:46 DC 03/10/22 11:50 30 ML Lidocaine HCl 15 ml ONCE ONCE PO 03/10/22 11:45 03/10/22 11:46 DC 03/10/22 11:50 15 ML Vital Signs/I&O 03/10/22 12:05 Pulse 91 Resp 16 B/P (MAP) 153/81 (105) Pulse Ox 99 O2 Delivery Room Air Progress Progress Note #1: Progress Note Ordered CBC, chemistry, lipase, electrocardiogram, chest x-ray, cardiac enzymes. Patient was at risk of life-threatening issues such as acute coronary syndrome, myocardial infarction, pneumonia, aortic dissection, uncontrolled blood pressure. Differential diagnosis also includes GERD with esophagitis, peptic ulcer disease, mass or tumor of the GI tract. Ordered normal saline 1 L IV fluid bolus for hydration, GI cocktail of lidocaine and Maalox to drink, Protonix 40 mg IV for gastritis and GERD, Toradol 15 mg IV for reproducible chest wall pain. Placed on cardiac hall monitor which shows normal sinus rhythm with heart rate in the 70s without ectopy or ST elevation. 1149 on my personal review and interpretation of her electrocardiogram she is in a sinus rhythm with out ST elevation. Overall appears similar to tracing from the clinic earlier today as well as June 14, 2021. On my review and interpretation of her 1 view chest x-ray she has no acute process in the chest. She has no effusion or infiltrate and no cardiomegaly or pulmonary vascular congestion. She has no prior chest x-ray for comparison. Progress Note #2: Time: 12:23 Progress Note Patient reports improvement in her heartburn and burning sensation symptoms. She has no acute ST elevation on her electrocardiogram. Her cardiac telemetry monitoring continues to show normal sinus rhythm with a heart rate in the 70s. She does not have ST elevation or ectopy showing on the cardiac telemetry monitoring. Her CBC, chemistry, lipase, cardiac enzymes were all negative without elevation. Considering that she has had symptoms for 4 days and worse in the last 24 hours she should have an elevation in her troponin if this was acute coronary syndrome or myocardial infarction. Her coags were normal and D- dimer was negative as a screening test for PE. Chest x-ray did not show any acute process on it. Patient had told the nurses that she was having some sharp pain that was moving around on the left side of her chest. Will see if she wanted to try a stronger pain medicine but can reassure her that cardiac testing was negative for acute myocardial infarction. After review with patient she did not want to try additional pain medicine but was interested in having refill of her Protonix as she felt that and the GI cocktail helped here. She was advised to use OTC medicine such as Ibuprofen or Naproxen to help with chest wall strain/pain. Alternate ice and heat to chest wall to help with inflammation. Check with clinic as they may want to set her up to have outpatient EGD or scope to look for ulcers or problems with stomach and esophagus. Return if having worsening symptoms or not improving. With her negative testing here and improvement with treatment for GERD it was felt that she was safe to be treated as an outpatient rather than need admit to hospital for further monitoring or additional treatment. Initial ECG Impression Date: Mar 10, 2022 Initial ECG Impression Time: 11:40 Initial ECG Rate: 88 Initial ECG Rhythm: Normal Sinus Initial ECG Comparisson: Unchanged (06/14/2021) Comment On my personal review and interpretation her electrocardiogram shows sinus rhythm with a heart rate of 88 bpm. MN interval [address] elevation but some minimal ST depression. QT interval 356 ms with a QTc interval 401 ms. Overall appears similar to tracing from the clinic today as well as June 14, 2021. Diagnostic Imaging Diagonstic Imaging: Xray Plain Films/CT/US/NM/MRI: chest Comments [facility]. [place], [place] NAME: VICTORINO BASS [facility] REC#: [id number] PT STATUS: REG ER : 1980 PHYSICIAN: ARMIDA EDWARD MD ADMIT DATE: 03/10/22/ER FS Draft Date of Exam:03/10/22 CHEST 1 VIEW AP/PA ONLY CLINICAL INDICATION: Patient with chest pain. EXAM: Portable chest x-ray upright view. COMPARISON: None. FINDINGS: Lungs/pleura: Lungs are clear. There is no pneumothorax. There is no pleural effusion. Mediastinum: Unremarkable. Pulmonary vasculature: Unremarkable. Heart: Unremarkable. Bones/extrathoracic soft tissue: There are degenerative spurs involving the thoracic spine. IMPRESSION: There is no radiographic evidence of acute cardiopulmonary process. Dictated on workstation # [id number] Dict: 03/10/22 1152 Trans: 03/10/22 1154 [id number] Interpreted by: RADHIKA MAGANA MD Electronically signed by: Reviewed: Reviewed by Me Departure Impression Primary Impression: Burning chest pain Additional Impressions: GERD with esophagitis Qualified Codes: K21.00 - Gastro-esophageal reflux disease with esophagitis, without bleeding Muscle strain of anterior chest wall Disposition: HOME, SELF-CARE Condition: Improved Departure-Patient Inst. Decision time for Depature: 12:41 Referrals: YAS DELGADILLO (PCP) Primary Care Physician [facility]/LISA (Family) Primary Care Physician Patient Instructions: Muscle Strain ED, Acid Reflux, Adult and Adolescent ED, Acid Reflux and Gastroesophageal Reflux Disease in Adults Add. Discharge Instructions: Try to follow a bland low-fat diet. Take the Protonix to help reduce acid in your stomach. Follow-up with the clinic as they may need to schedule you for an EGD or scope to look at the lining of the esophagus and stomach looking for ulcers. As far as your chest wall strain you could try alternating ice and heat to help with inflammation. You could also try taking uvui-obe-btpgayf anti-inflammatory such as ibuprofen or naproxen. Make sure to take it with food to limit i rritation to your stomach. Scripts Pantoprazole Sodium (Pantoprazole Sodium) 40 Mg Tablet. 40 MG PO DAILY for GERD for 30 Days, #30 TAB 0 Refills Prov: ARMIDA EDWARD MD 03/10/22 ARMIDA EDWARD MD Mar 10, 2022 11:55
[2022-03-10 11:59] LABS: BASOPHILS # (AUTO) 0.1 10^3/uL (0.0-0.1); BASOPHILS % (AUTO) 1 % (0-10); EOSINOPHILS # (AUTO) 0.3 10^3/uL (0.0-0.3); EOSINOPHILS % (AUTO) 4 % (0-10); HEMATOCRIT 37 % (35-52); HEMOGLOBIN 12.1 g/dL (11.5-16.0); LYMPHOCYTES # (AUTO) 2.6 10^3/uL (1.0-4.0); LYMPHOCYTES % (AUTO) 41 % (12-44); MEAN CORPUSCULAR HEMOGLOBIN 26 pg (25-34); MEAN CORPUSCULAR HGB CONC 33 g/dL (32-36); MEAN CORPUSCULAR VOLUME 78 fL (80-99); MEAN PLATELET VOLUME 9.8 fL (9.0-12.2); MONOCYTES # (AUTO) 0.3 10^3/uL (0.0-1.0); MONOCYTES % (AUTO) 5 % (0-12); NEUTROPHILS # (AUTO) 3.2 10^3/uL (1.8-7.8); NEUTROPHILS % (AUTO) 50 % (42-75); PLATELET COUNT 353 10^3/uL (130-400); WHITE BLOOD COUNT 6.5 10^3/uL (4.3-11.0)
[2022-03-10 12:05] VITALS: BP 153/81
[2022-03-10 12:12] LABS: ALBUMIN 4.4 GM/DL (3.2-4.5); BILIRUBIN,TOTAL 0.3 MG/DL (0.1-1.0); CALCIUM 9.3 MG/DL (8.5-10.1); CREATININE SERUM 1.06 MG/DL (0.60-1.30); POTASSIUM 4.3 MMOL/L (3.6-5.0); TOTAL PROTEIN 7.2 GM/DL (6.4-8.2)
[2022-03-10 12:13] LABS: INR 0.9 (0.8-1.4); PROTHROMBIN TIME PATIENT 12.1 SEC (12.2-14.7)
[2022-03-10 12:14] LABS: FIBRIN DEGRADATION PRODUCTS 0.45 UG/ML (0.00-0.49)
[2022-03-10] MEDS ORDERED: PANT40TA52 PO (12:46)
== END 2022-03-10 12:55 | disposition home or self-care (01) ==
LOC: EDUNIT# 11:30 → ER FS 11:31
DX: S29.011A Strain of muscle and tendon of front wall of thorax, initial encounter (principal); K21.00 Gastro-esophageal reflux disease with esophagitis, without bleeding; E66.9 Obesity, unspecified; Z68.34 Body mass index [BMI] 34.0-34.9, adult; Z88.6 Allergy status to analgesic agent; X50.0XXA Overexertion from strenuous movement or load, initial encounter; Y92.59 Other trade areas as the place of occurrence of the external cause; Y99.0 Civilian activity done for income or pay
CPT/HCPCS: 36415; 71045; 80053; 83690; 83735; 83880; 84484; 85025; 85379; 85610; 85730; 93005; 93041

== ENCOUNTER 2022-06-18 02:38 | Emergency (ER) | payer MEDICAID ==
[~2022-06-18] VITALS: Ht 162 cm; Wt 83.9 kg
[~2022-06-18 02:38] MED LIST changes: +PANT40TA52 PO
--- NOTE | 2022-06-18 02:49 | ED Chest Pain ---
General Stated Complaint: CHEST PAIN History of Present Illness Date Seen by Provider: Jun 18, 2022 Time Seen by Provider: 02:48 Initial Comments 42-year-old female with PMH of GERD, is here with complaints of acid reflux, heartburn, chest discomfort which is retrosternal, which began yesterday afternoon. Patient had fried chicken and mashed potatoes for dinner last night. Patient normally takes medication but it has not been helping much. Denies palpitations, shortness of breath, diarrhea, fever and chills, abdominal pain. Allergies and Home Medications Allergies Coded Allergies: butorphanol (Verified Allergy, Unknown, 09/16/19) Patient Home Medication List Home Medication List Reviewed: Yes Pantoprazole Sodium (Pantoprazole Sodium) 40 Mg Tablet.dr, 40 MG PO DAILY Prescribed by: ARMIDA EDWARD on 03/10/22 1246 Prochlorperazine Maleate (Compazine) 10 Mg Tablet, 10 MG PO Q8H Prescribed by: EDGAR DAN on 09/16/19 1443 Review of Systems Review of Systems Constitutional: no symptoms reported EENTM: No Symptoms Reported Respiratory: No Symptoms Reported Cardiovascular: No Symptoms Reported Gastrointestinal: Abdominal Pain Genitourinary: No Symptoms Reported Musculoskeletal: no symptoms reported Skin: no symptoms reported Psychiatric/Neurological: No Symptoms Reported Endocrine: No Symptoms Reported Hematologic/Lymphatic: No Symptoms Reported Past Hcwzcih-Dfzdwd-Rekkxm Hx Seasonal Allergies Seasonal Allergies: No Past Medical History Surgery/Hospitalization HX: GERD Surgeries: No Respiratory: No Cardiac: Yes Hypertension Neurological: No Genitourinary: No Gastrointestinal: Yes Gastroesophageal Reflux Musculoskeletal: No Endocrine: No HEENT: No Cancer: No Psychosocial: No Integumentary: No Physical Exam Vital Signs Vital Signs - First Documented 06/18/22 02:46 Temp 36.9 Pulse 91 Resp 20 B/P (MAP) 125/83 (97) Pulse Ox 97 O2 Delivery Room Air Capillary Refill : Height, Weight, BMI Height: '" Weight: lbs. oz. kg; 34.00 BMI Method: General Appearance: No Apparent Distress, WD/WN HEENT: PERRL/EOMI Neck: Full Range of Motion, Normal Inspection, Non Tender, Supple Respiratory: Chest Non Tender, Lungs Clear, Normal Breath Sounds Cardiovascular: Regular Rate, Rhythm, No Edema Gastrointestinal: Normal Bowel Sounds, No Organomegaly, No Pulsatile Mass, Non Tender, Soft Extremity: Normal Range of Motion Neurologic/Psychiatric: Alert, Oriented x3 Skin: Normal Color Progress/Results/Core Measures Results/Orders Lab Results Laboratory Tests Test 06/18/22 02:50 Range/Units Troponin I < 0.30 <0.30 NG/ML My Orders Orders - BRUCE SALGADO MD Ekg Tracing (06/18/22 02:49) Troponin I Fs (06/18/22 02:50) Famotidine Injection (Pepcid Injection) (06/18/22 02:50) Pantoprazole Injection (Protonix Injecti (06/18/22 03:00) Antacid Suspension (Mylanta Suspension (06/18/22 03:00) Lidocaine 2% Viscous 15 Ml (Xylocaine Vi (06/18/22 03:00) Medications Given in ED Current Medications Medications Dose Ordered Sig/Chris Route Start Time Stop Time Status Last Admin Dose Admin Al Hydrox/Mg Hydrox/Simethicone 30 ml ONCE ONCE PO 06/18/22 03:00 06/18/22 03:01 DC 06/18/22 03:02 30 ML Lidocaine HCl 5 ml ONCE ONCE PO 06/18/22 03:00 06/18/22 03:01 DC 06/18/22 03:03 5 ML Pantoprazole 40 mg ONCE ONCE IV 06/18/22 03:00 06/18/22 03:01 DC 06/18/22 03:04 40 MG Vital Signs/I&O 06/18/22 02:46 Temp 36.9 Pulse 91 Resp 20 B/P (MAP) 125/83 (97) Pulse Ox 97 O2 Delivery Room Air Progress Progress Note : Progress Note 1. GERD: -To make sure the heart is not the issue, an EKG was done which is nonischemic, and troponin was done which is negative -Pepcid IV/Protonix IV/viscous lidocaine/Maalox stat. Patient benefited from this, and her symptoms improved. -Advised patient to take Pepcid twice a day in addition to her pantoprazole. Also advised her to buy liquid Maalox and take as needed for heartburn. -Follow-up with PCP and cardiology in the next 3 to 7 days. Call for appointment. The patient was seen in the ED, and treated appropriately to presentation at a specific point in time. Patient is informed that there is a possibility that disease and illness can evolve and change in acuity rapidly or slowly after patient is discharged from the ER. Precautionary advice given to the patient for immediate return to ER if symptoms worsen or do not resolve, and to seek emergency care sooner rather than later. Pt also advised on the importance of PCP follow up and compliance with management and follow up plan with PCP and/or specialist, as this is part of the management plan. Pt verbally expressed understanding. Initial ECG Impression Date: Jun 18, 2022 Initial ECG Impression Time: 02:48 Initial ECG Rate: 93 Initial ECG Rhythm: Normal Sinus Initial ECG Intervals: Normal Initial ECG Impression: Normal Departure Impression Primary Impression: Gastroesophageal reflux disease without esophagitis Disposition: HOME, SELF-CARE Condition: Improved Departure-Patient Inst. Referrals: YAS DELGADILLO (PCP) Primary Care Physician [facility]/LISA (Family) Primary Care Physician Patient Instructions: Acid Reflux and GERD in Adults (DC) Add. Discharge Instructions: -Advised patient to take Pepcid twice a day in addition to her pantoprazole. Also advised her to buy liquid Maalox and take as needed for heartburn. -Follow-up with PCP and cardiology in the next 3 to 7 days. Call for appointment. BRUCE SALGADO MD Jun 18, 2022 02:49
[2022-06-18] MEDS ORDERED: FAMOTIDINE 20MG/2ML IV (PEPCID) IV STA (02:50)
[2022-06-18] MEDS ORDERED: LIDOCAINE 2% VISCOUS 15 ML UDC PO ONE (03:00)
[2022-06-18] MEDS ORDERED: PANTOPRAZOLE 40 MG (PROTONIX) VIAL IV ONE (03:00)
[2022-06-18] MEDS ORDERED: ANTACID SUSP 30 ML UDC (MYLANTA) PO ONE (03:00)
[2022-06-18 03:45] VITALS: BP 139/84
== END 2022-06-18 03:51 | disposition home or self-care (01) ==
LOC: EDUNIT# 02:38 → ER FS 02:42
DX: K21.9 Gastro-esophageal reflux disease without esophagitis (principal)
CPT/HCPCS: 36415; 84484; 93005

== ENCOUNTER 2023-01-09 20:03 | Emergency (ER) | payer MEDICAID ==
[~2023-01-09] VITALS: Ht 162 cm; Wt 87.7 kg
[2023-01-09 20:05] VITALS: BP 168/89
--- NOTE | 2023-01-09 20:17 | ED General ---
General Stated Complaint: ELEV BP Source of Information: Patient Exam Limitations: No Limitations History of Present Illness Date Seen by Provider: Jan 09, 2023 Time Seen by Provider: 20:03 Initial Comments 42-year-old female presents for elevated blood pressures. She is relatively asymptomatic in that regard however she does state that she has been ill for the last week with upper respiratory congestion, nasal congestion. She tells me she has had fevers. When asked about this she states it was just tonight and her temperature was 99.3. She is also had some belching this evening which she olimpia cribes as indigestion. Notably she has been seen for GERD type symptoms 3 times this in the ER within the last year and a half. She takes lisinopril for blood pressures and then denies any recent changes in this dosage. She denies any chest pain, headaches or changes in vision. All other systems reviewed and negative except documented per HPI. Voice recognition software was used to help create this chart Allergies and Home Medications Allergies Coded Allergies: butorphanol (Verified Allergy, Unknown, 09/16/19) Patient Home Medication List Home Medication List Reviewed: Yes Pantoprazole Sodium (Pantoprazole Sodium) 40 Mg Tablet.dr, 40 MG PO DAILY Prescribed by: ARMIDA EDWARD on 03/10/22 1246 Prochlorperazine Maleate (Compazine) 10 Mg Tablet, 10 MG PO Q8H Prescribed by: EDGAR DAN on 09/16/19 1443 Review of Systems Review of Systems Constitutional: see HPI Past Mrtmrow-Mjrbmo-Poekey Hx Patient Social History Tobacco Use?: No Use of E-Cig and/or Vaping dev: No Substance use?: No Alcohol Use?: No Seasonal Allergies Seasonal Allergies: No Past Medical History Surgery/Hospitalization HX: GERD Surgeries: No Respiratory: No Cardiac: Yes Hypertension Neurological: No Genitourinary: No Gastrointestinal: Yes Gastroesophageal Reflux Musculoskeletal: No Endocrine: No HEENT: No Cancer: No Psychosocial: No Integumentary: No Physical Exam Vital Signs Vital Signs - First Documented 01/09/23 20:05 Temp 35.8 Pulse 116 Resp 18 B/P (MAP) 168/89 (115) Pulse Ox 98 O2 Delivery Room Air Capillary Refill : Height, Weight, BMI Height: '" Weight: lbs. oz. kg; 31.00 BMI Method: General Appearance: No Apparent Distress, WD/WN HEENT: Normal ENT Inspection, Pharynx Normal Neck: Full Range of Motion, Normal Inspection, Non Tender, Supple Respiratory: Chest Non Tender, Lungs Clear, Normal Breath Sounds, No Accessory Muscle Use, No Respiratory Distress Cardiovascular: Regular Rate, Rhythm, No Murmur, Normal Peripheral Pulses Gastrointestinal: Normal Bowel Sounds, No Organomegaly, Non Tender, Soft Extremity: Normal Capillary Refill, Normal Inspection, Normal Range of Motion, No Pedal Edema Neurologic/Psychiatric: Alert, Oriented x3, No Motor/Sensory Deficits Skin: Normal Color, Warm/Dry Progress/Results/Core Measures Suspected Sepsis SIRS Temperature: Pulse: Respiratory Rate: Blood Pressure / Mean: Results/Orders My Orders Orders - INES SAHNI DO Chest 1 View Ap/Pa Only (01/09/23 20:13) Vital Signs/I&O 01/09/23 20:05 Temp 35.8 Pulse 116 Resp 18 B/P (MAP) 168/89 (115) Pulse Ox 98 O2 Delivery Room Air Capillary Refill : Departure Communication (Admissions) Patient has moderately elevated blood pressures. She is relatively asymptomatic in this regard. She does have what sounds to be a viral URI. Chest x-ray is obtained shows no evidence for pneumonia. She is otherwise hemodynamically stable, afebrile and nontoxic. She is discharged home in stable condition with recommendation to keep a log of her blood pressures and follow-up with her primary doctor. She will return to care for any severe chest pain, severe headaches or changes in vision. She will continue home lisinopril. No indication for lab evaluation at this time Impression Primary Impression: Elevated blood pressure reading Additional Impression: Upper respiratory infection Qualified Codes: J06.9 - Acute upper respiratory infection, unspecified Disposition: HOME, SELF-CARE Condition: Stable Departure-Patient Inst. Referrals: RENNY BAHENA APRN (PCP) Primary Care Physician [facility] (Family) Primary Care Physician Patient Instructions: High blood pressure in adults, Upper Respiratory Infection ED Add. Discharge Instructions: Continue your medications as previously prescribed. Follow-up with your primary doctor should your blood pressures continue to be elevated. Return to the emergency department immediately if you develop any chest pain, severe shortness of breath or if your symptoms change in any way concerning to you. INES SAHNI DO Jan 09, 2023 20:17
--- NOTE | 2023-01-15 10:09 | Diagnostic Imaging Report ---
INDICATION: Cough. COMPARISON: 03/10/2022. FINDINGS: The lungs appear clear without focal airspace opacities or consolidation. There are no findings of an effusion. There is no evidence of a pneumothorax. Heart size and mediastinal contours appear appropriate. Pulmonary vascularity appears within normal limits. There is no acute or suspicious osseous abnormality demonstrated. IMPRESSION: No radiographic evidence of an acute cardiopulmonary process. Dictated by: Dictated on workstation # [id number]
== END 2023-01-09 20:31 | disposition home or self-care (01) ==
LOC: EDUNIT# 20:03 → ER FS 20:05
DX: I10 Essential (primary) hypertension (principal); J06.9 Acute upper respiratory infection, unspecified
CPT/HCPCS: 71045